=== PATIENT | female | born 1995 | race Caucasian/White ===

== ENCOUNTER 2017-04-28 21:44 | Emergency (ER) | payer OTHER ==
[~2017-04-28 21:44] MED LIST: ATARAX; FLEXERIL10 MG PO; HYDROXYZINE HCL50 MG PO; IBUPROFEN800 MG PO; NAPROSYN-EC500 MG PO; NEXPLANON68 MG SQ; PRENATAL1 TA1 PO; SERTRALINE HCL100 M1 PO; VICODIN PO; ZOFRAN ODT4 MG PO; ZOLOFT100 MG PO
== END 2017-04-28 23:10 | disposition home or self-care (01) ==
LOC: CFTX 21:44 → CED 21:44 → CFTX 23:07
DX: T63.441A Toxic effect of venom of bees, accidental (unintentional), initial encounter (principal); F31.9 Bipolar disorder, unspecified; F41.9 Anxiety disorder, unspecified; F17.200 Nicotine dependence, unspecified, uncomplicated; Z91.040 Latex allergy status; Z88.8 Allergy status to other drugs, medicaments and biological substances
CPT/HCPCS: 99282